=== PATIENT | female | born 1990 | race African-American/Black ===

== ENCOUNTER → 2016-11-05 | Outpatient (CLI) | payer OTHER ==
[2016-11-05 14:49] LABS: ALBUMIN 3.4 GM/DL (3.2-5.2); ALBUMIN/GLOBULIN RATIO 0.77 (1.00-1.93); ALKALINE PHOSPHATASE 62 U/L (45-117); ALT/SGPT 22 U/L (12-78); ANION GAP 8 MEQ/L (8-16); AST/SGOT 17 U/L (15-37); BILIRUBIN,TOTAL 0.2 MG/DL (0.2-1.0); BLOOD UREA NITROGEN 11 MG/DL (7-18); CARBON DIOXIDE LEVEL 28 MEQ/L (21-32); CHLORIDE LEVEL 104 MEQ/L (98-107); CHOLESTEROL LEVEL 171 MG/DL (<200); CREATININE FOR GFR 0.68 MG/DL (0.55-1.02); GLOMERULAR FILTRATION RATE > 60.0 (>60); GLUCOSE, FASTING 82 MG/DL (70-105); POTASSIUM SERUM 4.1 MEQ/L (3.5-5.1); SODIUM LEVEL 140 MEQ/L (136-145); TOTAL PROTEIN 7.8 GM/DL (6.4-8.2); TRIGLYCERIDES LEVEL 58 MG/DL (<150)
== END ==
LOC: M LAB 12:55
PROVIDERS: ATTEND Family Medicine Addiction Medicine
DX: R06.83 Snoring (principal)

== ENCOUNTER → 2017-02-04 | Outpatient (CLI) | payer OTHER ==
[~2017-02-04] MED LIST: AUGM875T28 PO; ULTR50TA8 PO
--- NOTE | 2017-02-09 12:50 | SLEEPHOME ---
DATE OF PROCEDURE: 02/04/2017 REFERRING PROVIDER: Iesha Choe NP INTERPRETATION: Diagnostic home sleep testing was performed due to concern for the obstructive sleep apnea syndrome in this patient with a history of excessive somnolence, snoring and nonrestorative sleep. For testing, a NOX-T3 respiratory monitoring device was used. Continuous record was made of pulse, oxygen saturation, air flow, chest and abdominal strain, and body position. 9 hours and 59 minutes of data were reviewed. Of these, 5 hours and 42 minutes were marked as time in bed. During the interval marked time in bed, there were 79 respiratory events identified of 10 seconds in duration or greater for a respiratory disturbance index of 13.8. The events were primarily obstructive, not exclusive to body posture. Baseline heart rate 70 beats per minute. Pulse rate ranged 56 o 98. Baseline saturation was 93%. Lowest oxygen saturation recorded 74%. Testing was performed in both the supine and nonsupine positions. IMPRESSION: Abnormal home sleep testing with repetitive respiratory events and oxygen desaturations to 74% with a respiratory event index of 13.8 is consistent with the obstructive sleep apnea syndrome. RECOMMENDATION: The patient should be encouraged to undergo formal sleep evaluation and in laboratory pressure titration.
== END ==
LOC: M SLEEP HO 10:16
PROVIDERS: ATTEND Nurse Practitioner Adult Health
DX: G47.30 Sleep apnea, unspecified (principal)

== ENCOUNTER 2017-03-12 13:33 | Emergency (ER) | payer OTHER ==
[~2017-03-12] VITALS: Ht 152.4 cm; Wt 97.8 kg
[2017-03-12] MEDS ORDERED: ULTR50TA8 PO (16:18)
[2017-03-12 16:21] VITALS: BP 117/64
--- NOTE | 2017-03-12 17:47 | REP ---
Soft-tissue neck radiographs: Three views. History: Anterior neck pain. Trauma. Findings: Soft tissue lateral views demonstrate normal epiglottis and aryepiglottic folds. Retropharyngeal soft tissues are not widened. Glottic and subglottic airway are unremarkable. No opaque foreign body is seen. There is degenerative disc spurring at C4-5 anteriorly. No other abnormality. Impression: Discogenic spurring at C4-5. Otherwise negative soft-tissue neck radiographs. Signed by Shiv Graves MD 03/13/2017 07:57 A
[2017-06-04] MEDS ORDERED: AUGM875T28 PO (01:02)
== END 2017-03-12 16:29 | disposition home or self-care (01) ==
LOC: M ED 13:33
DX: S10.93XA Contusion of unspecified part of neck, initial encounter (principal); S10.91XA Abrasion of unspecified part of neck, initial encounter; S30.811A Abrasion of abdominal wall, initial encounter; V47.5XXA Car driver injured in collision with fixed or stationary object in traffic accident, initial encounter; Y92.410 Unspecified street and highway as the place of occurrence of the external cause; Y93.89 Activity, other specified; Y99.8 Other external cause status; E66.9 Obesity, unspecified

== ENCOUNTER → 2017-06-26 | Outpatient (REF) | payer BC | LOC: M LAB REF 18:33 | PROVIDERS: ATTEND Advanced Practice Midwife | DX: Z12.4 Encounter for screening for malignant neoplasm of cervix (principal) ==

== ENCOUNTER → 2017-06-26 | Outpatient (CLI) | payer BC ==
[2017-06-26 13:32] LABS: CONTROL LINE HCG INT CTR LINE PRESENT
[2017-06-26 13:48] LABS: LUTEINIZING HORMONE 7.5 mIU/mL; PROLACTIN 13.3 NG/ML
[2017-06-26 13:49] LABS: ESTRADIOL 78.8 PG/ML; FOLLICLE STIMULATING HORMONE 7.3 mIU/mL; FREE T4 1.27 NG/DL (0.76-1.46)
[2017-06-30 08:21] LABS: 17 HYDROXY PROGESTERONE 30 ng/dL (.); INSULIN FREE 9.1 uU/mL (.)
== END ==
LOC: M SMT 09:39
PROVIDERS: ATTEND Advanced Practice Midwife
DX: N92.6 Irregular menstruation, unspecified (principal)

== ENCOUNTER → 2017-07-04 | Outpatient (CLI) | payer BC ==
--- NOTE | 2017-07-04 19:33 | REP ---
PELVIC ULTRASOUND: CLINICAL: Irregular menstrual cycles. TECHNIQUE: Transabdominal pelvic ultrasound followed by transvaginal examination for better evaluation of the endometrium and adnexa with color evaluation of the ovaries. FINDINGS: The bladder is normal and measures 8.1 x 4.2 x 6.9 cm. Normal anteverted uterus measures 7.2 x 2.6 x 4.2 cm. The endometrial complex measures 3.9 mm in thickness. The bilateral ovaries are normal in appearance and color evaluation without obvious torsion. The right ovary measures 2.7 x 1.9 x 1.8 cm. Left ovary measures 2.8 x 1.8 x 2.0 cm. No pelvic fluid or adnexal mass lesions. IMPRESSION: Normal pelvis ultrasound. Signed by Oli Hensley MD 07/05/2017 08:10 A
== END ==
LOC: M RAD 09:24
PROVIDERS: ATTEND Advanced Practice Midwife
DX: N92.4 Excessive bleeding in the premenopausal period (principal)

== ENCOUNTER → 2017-08-20 | Outpatient (REF) | payer BC | LOC: M LAB REF 17:54 | DX: R87.810 Cervical high risk human papillomavirus (HPV) DNA test positive (principal) | CPT/HCPCS: 88304 ==

== ENCOUNTER → 2018-09-18 | Outpatient (CLI) | payer BC ==
[2018-09-18 08:12] LABS: BASO % 0.7 % (0.0-1.0); EOS # 0.1 10^3/uL (0.0-0.50); EOS % 2.3 % (0.0-3.0); HEMATOCRIT 28.9 % (36.0-47.0); LYMPH # 2.3 10^3/uL (1.5-6.5); LYMPH % 38.7 % (24.0-44.0); MEAN CORPUSCULAR HEMOGLOBIN 19.7 pg (27.0-33.0); MEAN CORPUSCULAR HGB CONC 27.7 g/dl (32.0-36.5); MONO # 0.6 10^3/uL (0.0-0.8); MONO % 9.9 % (0.0-5.0); NEUTROPHILS # 2.9 10^3/uL (1.8-7.7); NEUTROPHILS % 48.2 % (36.0-66.0); PLATELET COUNT, AUTOMATED 445 10^3/uL (150-450); RED BLOOD COUNT 4.07 10^6/uL (4.00-5.40)
[2018-09-18 08:40] LABS: ALBUMIN 3.2 GM/DL (3.2-5.2); ALT/SGPT 17 U/L (12-78); BILIRUBIN,TOTAL 0.1 MG/DL (0.2-1.0); BLOOD UREA NITROGEN 13 MG/DL (7-18); CALCIUM LEVEL 8.5 MG/DL (8.5-10.1); CARBON DIOXIDE LEVEL 29 MEQ/L (21-32); CHLORIDE LEVEL 108 MEQ/L (98-107); CHOLESTEROL LEVEL 151 MG/DL (<200); CHOLESTEROL RISK RATIO 3.145 (<5); CREATININE FOR GFR 0.73 MG/DL (0.55-1.30); FREE T4 1.27 NG/DL (0.76-1.46); GLOMERULAR FILTRATION RATE > 60.0 (>60); GLUCOSE, FASTING 90 MG/DL (70-100); HDL CHOLESTEROL 48 MG/DL (>40); LDL CHOLESTEROL 91 MG/DL (<100); NON-HDL-C 103 MG/DL; POTASSIUM SERUM 3.9 MEQ/L (3.5-5.1); SODIUM LEVEL 142 MEQ/L (136-145); THYROID STIMULATING HORMONE 0.896 uIU/ML (0.358-3.740); TOTAL PROTEIN 7.4 GM/DL (6.4-8.2); TRIGLYCERIDES LEVEL 61 MG/DL (<150); TROPONIN I < 0.02 NG/ML (< 0.10)
[2018-09-18 10:45] LABS: HEMOGLOBIN A1c 6.3 %
== END ==
LOC: M LAB 07:22
PROVIDERS: ATTEND Physician Assistant
DX: R07.9 Chest pain, unspecified (principal)